=== PATIENT | male | born 1960 | race Caucasian/White ===

== ENCOUNTER 2019-12-30 09:16 | Outpatient (RCR) | payer BC, SELFPAY ==
[2019-12-30 09:23] VITALS: BMI 31.8
== END 2020-03-29 23:59 | disposition home or self-care (01) ==
LOC: ANHDMC 09:16
PROVIDERS: PCP Family Medicine; Visit Provider Physician Assistant Medical
DX: E11.65 Type 2 diabetes mellitus with hyperglycemia (principal); Z71.3 Dietary counseling and surveillance; Z71.89 Other specified counseling
CPT/HCPCS: 97802; G0108

== ENCOUNTER 2020-01-10 11:02 | Outpatient (CLI) | payer BC, SELFPAY ==
--- NOTE | ~2020-01-10 | CT_ITS ---
EXAMINATION: CT lung screening DATE: 01/10/2020 11:29 INDICATION: Screening for lung cancer TECHNIQUE: Computed tomography (CT) of the chest was performed without intravenous contrast. The dose -length product was 208.70 mGy-cm. Automated exposure control and iterative reconstruction technique were employed. COMPARISON: None FINDINGS: Heart size normal. No thoracic lymphadenopathy. No significant pleural or pericardial effus ion. Calcified granuloma right middle lobe. No noncalcified pulmonary nodules are identified. No endo bronchial lesions. No pneumothorax. No osteolytic or osteoblastic lesions are identified. IMPRESSION: 1. Lung-RADS category 1: Negative. Continue annual screening with noncontrast low-dose chest CT in 12 months. Reviewed, dictated and finalized at location B. BOX OPERATOR IMPRESSION: 1. Lung-RADS category 1: Negative. Continue annual screening with noncontrast l ow-dose chest CT in 12 months.
== END 2020-01-10 11:03 | disposition home or self-care (01) ==
LOC: ANHIMG 11:10
PROVIDERS: PCP Family Medicine; Visit Provider Physician Assistant Medical
DX: Z12.2 Encounter for screening for malignant neoplasm of respiratory organs (principal); Z87.891 Personal history of nicotine dependence
CPT/HCPCS: G0297

== ENCOUNTER 2020-09-30 09:39 | Outpatient (CLI) | payer BC, SELFPAY ==
--- NOTE | ~2020-09-30 | US_ITS ---
EXAMINATION: US carotid duplex BI DATE: 09/30/2020 11:26 INDICATION: amaurosis fugax TECHNIQUE: Grayscale, color Doppler, and pulsed Doppler images of the cervical carotid arteries were obtained. The degree of vessel stenosis is placed in one of the following categories: normal, <50%, 5 0-69%, >=70% but less than near-occlusion, near-occlusion, or total occlusion. Note that percent sten osis relative to normal distal artery lumen diameter is indirectly measured from velocity measurement s as described by Jensen, et al. Radiology 2003; 229:340-346. COMPARISON: None. FINDINGS: RIGHT: The right common carotid artery (CCA) peak systolic velocity (PSV) is 77 cm/s. The right internal car otid artery (ICA) PSV is 61 cm/s. The right ICA end-diastolic velocity (EDV) is 29 cm/s. The right IC A/CCA PSV ratio is 0.8. Grayscale and color Doppler images yield an estimate of <50% diameter reducti on from plaque in the ICA. The external carotid artery (ECA) PSV is 100 cm/s. There is antegrade flow in the right vertebral artery. LEFT: The left CCA PSV is 102 cm/s. The left ICA PSV is 107 cm/s. The left ICA EDV is 42 cm/s. The left ICA /CCA PSV ratio is 1.1. Grayscale and color Doppler images yield an estimate of <50% diameter reductio n from plaque in the ICA. The ECA PSV is 114 cm/s. There is antegrade flow in the left vertebral pacheco ry. IMPRESSION: 1. <50% stenosis in the right internal carotid artery. 2. <50% stenosis in the left internal carotid artery. Reviewed, dictated and finalized at location . ITECT
--- NOTE | 2020-09-30 10:35 | ECG_ITS ---
Measurements Intervals [place] Rate: 91 P: 53 KS: 176 QRS: 44 QRSD: 89 T: 35 QT: 318 QTc: 392 Interpretive Statements SINUS RHYTHM CANNOT RULE OUT SEPTAL INFARCT, AGE INDETERMINATE BASELINE ARTIFACT- I, III, AVL ABNORMAL ECG Electronically Signed On 09-30-2020 16:57:41 INDI[place] NANNY by Hernan Mcgregor D.O.
== END 2020-09-30 09:40 | disposition home or self-care (01) ==
PROVIDERS: PCP Family Medicine; Visit Provider Physician Assistant Medical
DX: G45.3 Amaurosis fugax (principal); R94.31 Abnormal electrocardiogram [ECG] [EKG]
CPT/HCPCS: 93005; 93880

== ENCOUNTER 2024-12-29 16:03 | Outpatient (CLI) | payer OTHER, SELFPAY ==
--- NOTE | ~2024-12-29 | XR_ITS ---
EXAMINATION: XR hip LT 2V w AP pelvis DATE: 12/29/2024 16:34 INDICATION: Left hip pain. TECHNIQUE: An anteroposterior view of the pelvis on 2 radiographs and 2 views of left hip were obtain ed. COMPARISON: None. FINDINGS: Alignment is normal. No fracture. There is mild osteoarthritis of the hips. IMPRESSION: 1. Mild osteoarthritis of the hips. Reviewed, dictated and finalized at location A. TRON BEAM WELDER SETTER
--- NOTE | ~2024-12-29 | XR_ITS ---
EXAMINATION: XR lumbar spine 2-3V DATE: 12/29/2024 16:34 INDICATION: Left hip pain. TECHNIQUE: 3 views of the lumbar spine including standing views were obtained. COMPARISON: None. FINDINGS: Alignment is normal. Vertebral body heights are normal. There is mildly decreased disc heig ht at L5-S1. There is multilevel facet joint osteoarthritis, moderate in lower lumbar spine. IMPRESSION: 1. Mild lumbar spondylosis. Reviewed, dictated and finalized at location A. ESSOR OF FINE ART IMPRESSION: 1. Mild lumbar spondylosis.
== END 2024-12-29 16:04 | disposition home or self-care (01) ==
LOC: MICIMG 16:06
PROVIDERS: PCP Chiropractor; Visit Provider Chiropractor
DX: M47.896 Other spondylosis, lumbar region (principal); M16.0 Bilateral primary osteoarthritis of hip
CPT/HCPCS: 72100; 73502

== ENCOUNTER 2025-09-14 16:20 | Outpatient (CLI) | payer BC, SELFPAY ==
--- NOTE | ~2025-09-14 | CT_ITS ---
CT lung screening INDICATION: Tobacco use. COMPARISON: 01/10/2020. TECHNIQUE: CT examination of the entire thorax without contrast was performed using low dose technique. Thin section axial, sagittal and coronal images were included to increase sensitivity for small lung nodules. FINDINGS: PULMONARY NODULES: No suspicious noncalcified pulmonary nodules seen. OTHER PULMONARY FINDINGS: There is calcified granuloma within the right middle lobe. Mild emphysematous changes are present. No pathologically enlarged lymph nodes are present. Normal heart size. In this limited nondedicated CT there are mild coronary artery calcifications. UPPER ABDOMEN AND PERIPHERAL SOFT TISSUE: Hepatic cyst measures 4 cm. OSSEOUS STRUCTURES: Bone window shows no aggressive blastic or lytic lesions. IMPRESSION: 1. Lung-RADS category 1: No nodules or definitely benign nodules. Recommendations: 1 or 2: Annual screening with low-dose CT in 12 months. 2. Mild emphysematous changes are present. All CT scans at this facility are performed using low dose modulation techniques as appropriate to perform exam including the following: automated exposure control; use of iterative reconstruction technique; adjustment of the mA and/or kV according to patient size (this includes techniques or standardized protocols for targeted exams where dose is matched to indication/reason for exam). Reviewed, dictated and finalized at location S. OR HIGH MATH TEACHER IMPRESSION: 1. Lung-RADS category 1: No nodules or definitely benign nodules. Recommendations: 1 or 2: Annual screening with low-dose CT in 12 months. 2. Mild emphysematous changes are present. All CT scans at this facility are performed using low dose modulation techniqu es as appropriate to perform exam including the following: automated exposure c ontrol; use of iterative reconstruction technique; adjustment of the mA and/or kV according to patient size (this includes techniques or standardized protocol s for targeted exams where dose is matched to indication/reason for exam).
--- OUTSIDE RECORDS SUMMARY | 2025-09-15 15:09 | XMS_ITS | Clinical Summary ---
Author Organization [facility] Address [address] [place] [address] Care Team Providers Care Slunk Skin Curer Name Role Phone Erick Jarquin MD Primary Care Provider [phone] Medications atorvastatin (LIPITOR) 80 mg tablet 08/12/2020 Active Invokamet XR 150-1,000 mg tablet, IR & ER, biphasic 24hr 08/12/2020 Activ e lisinopril-hydroCH LOROthiazide (ZESTORETIC) 10-12.5 mg tablet 09/04/2020 A ctive Ozempic 1 mg/dose (2 mg/1.5 mL) Pen Injector 06/30/2020 Active Active Problems Problem Noted Date Diagnosed Date Leukocytosis (leucocytosis) 09/12/2020 Social History Tobacco Use Types Packs/Day Years Used Date Smoking Tobacco: Every Day Cigarettes 1 25 Smokeless Tobacco: Never Tobacco Cessation:Ready to Q uit: Yes Comments:has not smoked for 4 days Alcohol Use Standard Drinks/Week Comments Yes 6 (1 standard drink = 0.6 oz pur e alcohol) Sex and Gender Information Value Date Recorded Sex Assigned at Not on file Legal Sex Male 12:44 PM CDT Gender Identity Not on file Sexual Orientation Not on file Last Filed Vital Signs Vital Sign Reading Time Taken Comments Blood Pressure 124/85 09/12/2020 1:30 PM CODER Pulse 84 09/12/2020 1:30 PM CODER Temperature 37.1 C (98.7 F) 09/12/2020 1:30 PM CODER Respiratory Rate - - Oxygen Saturation 97% 09/12/2020 1:30 PM CODER Inhaled Oxygen Concentration - - Weight 94.9 kg (209 lb 4.8 oz) 09/12/2020 1:30 P M CODER Height 177.8 cm (5' 10) 09/12/2020 1:30 PM CODER Body Mass Index 30.03 09/12/2020 1:30 PM CODER Plan of Treatment Health Maintenance Due Date Last Done Comments DTAP/TDAP/TD VACCINES (1 - Tdap) 1978 COLORECTAL SCREENING 2004 Colorectal Cancer Screening 2004 FIT-DNA Q 3 years 2004 FIT/FOBT Q 1 year 2004 Flex Sig/CT Colonography Q 5 years 2004 PNEUMOCOCCAL VACCINE 50+ YEARS (1 of 1 - PCV) 05/09/20 09 ZOSTER VACCINE (1 of 2) 2009 INFLUENZA VACCINE (#1) 2025 RSV VACCINE (60+ or ) (1 - 1-dose 75+ series) 2034 Care Teams Slunk Skin Curer Relationship Specialty Start Date End Date Erick Jarquin MD [address] [place] [address] PCP - General Family Practice 09/04/20
== END 2025-09-14 16:21 | disposition home or self-care (01) ==
PROVIDERS: PCP Family Medicine; Visit Provider Physician Assistant Medical
DX: Z12.2 Encounter for screening for malignant neoplasm of respiratory organs (principal); Z87.891 Personal history of nicotine dependence; J43.9 Emphysema, unspecified
CPT/HCPCS: 71271

== ENCOUNTER 2025-10-27 02:39 | Day surgery (SDC) | payer BC, SELFPAY ==
--- OUTSIDE RECORDS SUMMARY | 2025-04-18 12:00 | XMS_ITS | Continuity of Care Document ---
Author Organization [facility] [place] Address [address] [place] [address] Phone Care Team Providers Care Glass Processing Worker Name Role Phone Kelly Gil PTA Unavailable Unavailable Procedures Procedure Date Therapeutic Activities Neuromuscular Re-Ed Manual Therapy Therapeutic Exercise Therapeutic Activities Neuromuscular Re-Ed Therapeutic Exercise Manual Therapy Progress Note Therapeutic Activities Neuromuscular Re-Ed Therapeutic Exercise Therapeutic Activities Therapeutic Exercise Neuromuscular Re-Ed Therapeutic Activities Neuromuscular Re-Ed Therapeutic Exercise Therapeutic Activities Neuromuscular Re-Ed Therapeutic Exercise Therapeutic Activities Neuromuscular Re-Ed Therapeutic Exercise Therapeutic Activities Neuromuscular Re-Ed Therapeutic Exercise Therapeutic Activities Neuromuscular Re-Ed Therapeutic Exercise Therapeutic Activities Neuromuscular Re-Ed Therapeutic Exercise Therapeutic Activities Neuromuscular Re-Ed Therapeutic Exercise Doc neg elder mal no plan PT Evaluation Moderate Complexity Therapeutic Activities Neuromuscular Re-Ed Advance Directives Directive Yes / No Effective Date File Name No Information Encounters Encounter Description Practice Location Reason(s) For Visit Diagnoses Date Provider Providers Copied on Encounter [facility], [address] [place] [address], [id number], tel:[phone] [place] No Information Jeffery Mendoza. . Referring Provider: Erick Jarquin, [address] [place], [address]. tel:[phone] [place] [address] [facility] [employer], [id number], [place] tel:[phone] [place] No Information Jaya Gomezyn. . Referring Provider: Erick Jarquin, [address] [place], [address]. tel:[phone] [place] [address] [place] [address], [id number], [place] tel:[phone] [place] No Information Jaya Gomezyn. . Referring Provider: Erick Jarquin, [address] [place], [address]. tel:[phone] [place] [address] [facility] [employer], [id number], tel:[phone] [place] No Information Jaya Gomezyn. . Referring Provider: Erick Jarquin, [address] [place], [address]. tel:[phone] [place] [address] [address] [place] [employer], [id number], tel:[phone] [place] No Information Jaya Gomezyn. . Referring Provider: Erick Jarquin, [address] [place], [address]. tel:[phone] [place] [address], [id number], [place] tel:[phone] [place] No Information Jaya Duncan. . Referring Provider: Erick Jarquin, [address] [place], [address]. tel:[phone] [place] [address], [address], [id number], [place] tel:[phone] [place] No Information Jaya Duncan. . Referring Provider: Erick Jarquin, [address] [place], [address]. tel:[phone] [place] [address], [address], [id number], [place] tel:[phone] [place] No Information Jaya Duncan. . Referring Provider: Erick Jarquin, [address] [place], [address]. tel:[phone] [place] [address], [address], [id number], [place] tel:[phone] [place] No Information Jaya Duncan. . Referring Provider: Erick Jarquin, [address] [place], [address]. tel:[phone] [place] [address], [address], [id number], [place] tel:[phone] [place] No Information Jaya Duncan. . Referring Provider: Erick Jarquin, [address] [place], [address]. tel:[phone] [place] [address], [address], [id number], [place] tel:[phone] [place] No Information Jaya Duncan. . Referring Provider: Erick Jarquin [address] [place], [address]. tel:[phone] [facility] [place], [address] [facility] [address], [place], [place], [id number], tel:[phone] [place] No Information Jaya Leonardo . Referring Provider: Erick Jarquin, [address] [facility], [place], [address]. tel:[phone] Family History Family Member Type Diagnosis Age At Onset No Information Payers Payer name Insurance type Covered republican ID [facility] [place] [id number] Social History Type Description Quantity Date Captured Comments Sex Male Smoking Status No Information Chief Complaint And Reason For Visit No Information Reason For Referral Reason For Referral No Information Plan Of Treatment Date Type Action Status Goal Tobacco Cessation Counseling completed Goal Tobacco cessation counseling completed History Of Present Illness Encounter Date Complaint History Of Prese nt Illness No Information Functional Status Date Functional Assessmen t No Information Instructions Date Instruction Additional Infor mation No Information Assessments Type Assessment Date No Information Patient Care Teams Name Effective Dates (start - stop) Status Members No Information
[2025-09-27 15:29] VITALS: BMI 31.6
--- OUTSIDE RECORDS SUMMARY | 2025-10-27 02:41 | XMS_ITS | Clinical Summary ---
Author Organization [facility] Address [address] [place] [address] Care Team Providers Care Facing Machine Operator Name Role Phone Erick Jarquin MD Primary Care Provider [phone] Medications atorvastatin (LIPITOR) 80 mg tablet 08/12/2020 [...] Comments Blood Pressure 124/85 09/12/2020 1:30 PM CAPTAIN/CHECK AIRMAN Pulse 84 09/12/2020 1:30 PM CAPTAIN/CHECK AIRMAN Temperature 37.1 C (98.7 F) 09/12/2020 1:30 PM CAPTAIN/CHECK AIRMAN Respiratory Rate - - Oxygen Saturation 97% 09/12/2020 1:30 PM CAPTAIN/CHECK AIRMAN Inhaled Oxygen Concentration - - Weight 94.9 kg (209 lb 4.8 oz) 09/12/2020 1:30 P M CAPTAIN/CHECK AIRMAN Height 177.8 cm (5' 10) 09/12/2020 1:30 PM CAPTAIN/CHECK AIRMAN Body Mass Index 30.03 09/12/2020 1:30 PM CAPTAIN/CHECK AIRMAN Plan of Treatment Health Maintenance Due Date [...] - 1-dose 75+ series) 2034 Care Teams Facing Machine Operator Relationship Specialty Start Date End Date Erick Jarquin MD [address] [place] [address] PCP - General Family Practice 09/04/20
[2025-10-27 06:20] VITALS: BP 135/81; PULSE 97; RESP 18; TEMP 36.1; O2SAT 97; BMI 30.7
[2025-10-27] MEDS: LACTATED RINGERS 1,000 ML 150 ML IV CONT (06:31)
--- NOTE | 2025-10-27 06:50 | WPDANESEPPF ---
Anes - Initial Pre Proc Eval Procedure: Operation Date: 10/27/25 07:30 Proposed Procedures p Screening Colonoscopy - Joshua Valente MD Date/Time: 10/27/25 06:50 Surgeon: Joshua Valente MD Pre Op Diagnosis: Screening Patient Data Age: 65 Gender: M Height: 1.78 m Weight: 97 kg Last Vital Signs Temp 97 F L 10/27/25 06:20 Pulse 97 10/27/25 06:20 Resp 18 10/27/25 06:20 BP 135/81 10/27/25 06:20 Pulse Ox 97 10/27/25 06:20 O2 Del Method Room Air 10/27/25 06:20 Allergies Allergy/AdvReac Type Severity Reaction Status Date / Time No Known Allergies Allergy Verified 10/27/25 06:18 Home Medications ?Medication ?Instructions ?Recorded ?Confirmed ?Type flash glucose scanning reader #1 ea 08/07/21 09/27/25 Rx (FreeStyle Renu 14 Day [place]) sildenafil 100 mg tablet (Viagra) 100 mg PO DAILY PRN sexual 05/08/23 09/27/25 Rx activity #8 tabs flash glucose sensor (FreeStyle #2 ea 11/14/23 09/27/25 Rx Renu 14 Day Sensor kit) dapagliflozin propaned 10 1 tablet PO DAILY #30 ea 05/08/25 10/27/25 Rx mg-metformin ER 1,000 mg tablet,ext rel 24hr (Xigduo XR) citalopram 20 mg tablet See Rx Instructions .Route 07/14/25 10/27/25 Rx .COMPLEX #90 tabs atorvastatin 80 mg tablet 80 mg PO DAILY #90 tabs 08/07/25 10/27/25 Rx tirzepatide 12.5 mg/0.5 mL 12.5 mg (0.5 mL) subcut WEEKLY #2 08/22/25 10/27/25 Rx subcutaneous pen injector mL (Mounjaro) meloxicam 15 mg tablet 15 mg PO DAILY #30 tabs 09/21/25 10/27/25 Rx alprazolam 0.5 mg tablet (Xanax) 0.5 mg PO BID PRN anxiety 09/27/25 09/27/25 History lisinopril 10 1 tablet PO DAILY #90 tabs 09/29/25 10/27/25 Rx mg-hydrochlorothiazide 12.5 mg tablet varenicline tartrate 1 mg tablet 1 mg PO BID #56 tabs 10/13/25 Rx (Chantix) Laboratory Tests 10/27/25 06:29 POC Capillary Glucose 140 H mg/dl (65-105) Patient hx anesthesia problems: none Family hx anesthesia problems: none Results Review: All pre-operative results and documents have been reviewed as part of the pre-operative evaluation. [facility] Past Medical History Medical History Nicotine dependence Needs smoking cessation education BMI 29.0-29.9,adult Family History Family History Grandparent Hypertension Family history of malignant neoplasm Family history of coronary artery disease Diabetes mellitus Mother Family history of diabetes mellitus in first degree relative Diabetes mellitus Father Family history of Hodgkin's lymphoma Sibling No problems noted. 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 HTN, hyperlipidemia, ATILIO on CPAP, DM fsbs 140, smoker 1 ppd and did smoke at 530 am. Pt can walk short distances, no cp or sob. Informed Consent: The patient's anesthetic plan and its attendant risks and benefits were discussed with the patient/family/POA. Questions were solicited and answers provided to the satisfaction of the patient/family/POA.
--- NOTE | 2025-10-27 07:34 | PM.HPGS ---
History of Present Illness History of Present Illness Consent: Risks, benefits, and alternatives have been discussed and questions answered. Patient agrees to proceed with procedure. Chief complaint: Screening Narrative: Drew Blackman is a 65 year old male here for first screening colonoscopy Review of Systems Review of Systems: All systems reviewed & are unremarkable except as noted in HPI and below PMFSH Past Medical History Medical History Nicotine dependence Needs smoking cessation education BMI 29.0-29.9,adult Family History Family History Grandparent Hypertension Family history of malignant neoplasm Family history of coronary artery disease Diabetes mellitus Mother Family history of diabetes mellitus in first degree relative Diabetes mellitus Father Family history of Hodgkin's lymphoma Sibling No problems noted. 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 Gender identity (if verbalized by the patient): Male Spiritual care concerns: No Meds Home Medications and Allergies Home Medications ?Medication ?Instructions ?Recorded ?Confirmed ?Type flash glucose scanning reader #1 ea 08/07/21 09/27/25 Rx (FreeStyle Renu 14 Day [place]) sildenafil 100 mg tablet (Viagra) 100 mg PO DAILY PRN sexual 05/08/23 09/27/25 Rx activity #8 tabs flash glucose sensor (FreeStyle #2 ea 11/14/23 09/27/25 Rx Renu 14 Day Sensor kit) dapagliflozin propaned 10 1 tablet PO DAILY #30 ea 05/08/25 10/27/25 Rx mg-metformin ER 1,000 mg tablet,ext rel 24hr (Xigduo XR) citalopram 20 mg tablet See Rx Instructions .Route 07/14/25 10/27/25 Rx .COMPLEX #90 tabs atorvastatin 80 mg tablet 80 mg PO DAILY #90 tabs 08/07/25 10/27/25 Rx tirzepatide 12.5 mg/0.5 mL 12.5 mg (0.5 mL) subcut WEEKLY #2 08/22/25 10/27/25 Rx subcutaneous pen injector mL (Mounjaro) meloxicam 15 mg tablet 15 mg PO DAILY #30 tabs 09/21/25 10/27/25 Rx alprazolam 0.5 mg tablet (Xanax) 0.5 mg PO BID PRN anxiety 09/27/25 09/27/25 History lisinopril 10 1 tablet PO DAILY #90 tabs 09/29/25 10/27/25 Rx mg-hydrochlorothiazide 12.5 mg tablet varenicline tartrate 1 mg tablet 1 mg PO BID #56 tabs 10/13/25 Rx (Chantix) Allergies Allergy/AdvReac Type Severity Reaction Status Date / Time No Known Allergies Allergy Verified 10/27/25 06:18 Vital Signs Vital Signs - 24 hr 10/27/25 06:20 Temperature 97 F L Pulse Rate 97 Respiratory Rate 18 Blood Pressure 135/81 Pulse Oximetry 97 Oxygen Delivery Room Air Exam Const: General: comfortable and no acute distress HENMT: Face/Nose/Sinus: Normal nares present Eyes: General: appearance normal, both eyes and all related structures Neck: Neck: no JVD Resp: Auscultation: clear to auscultation bilaterally Cardio: Rate: regular rate Rhythm: regular rhythm GI: Inspection: non-distended GI Palp: Yes Soft to palpation Skin: General skin exam: normal color Extrem: General: normal to inspection Psych: Mental Status: mental status grossly normal Assessment and Plan Assessment and plan (1) Screening for colon cancer: Code(s): Z12.11 - Encounter for screening for malignant neoplasm of colon Status: Acute Assessment and Plan: colonoscopy
--- NOTE | 2025-10-27 07:50 | S_PTH ---
PATIENT: Drew Blackman LOC: [facility]#:[id number] AGE/SX: 65/M ROOM: RE10/27/[address]: Joshua Valente MD : 1960 BED: DIS: 10/27/2025 SPEC #: [id number] RECD: 10/27/25 10:29 STATUS: LELO REEVES #: [id number] OBDULIO: 10/27/25 07:[address]: Joshua Valente DEPT: [facility] Surgical RECD BY: Almaz Owen ENTERED: 10/27/25 10:29 SP TYPE: Surgical OTHR DR: Erick Jarquin MD Tissues: A - Colon Polypectomy B - Rectal Polyp Procedures: Hematoxylin and Eosin Stain Gross and Microscopic Level 4
[2025-10-27 07:53] VITALS: BP 132/91; PULSE 89; RESP 20; O2SAT 98
[2025-10-27 08:03] VITALS: BP 126/76; PULSE 88; RESP 24; O2SAT 98
[2025-10-27 08:13] VITALS: BP 124/72; PULSE 87; RESP 23; O2SAT 97
== END 2025-10-27 08:27 | disposition home or self-care (01) ==
PROVIDERS: PCP Family Medicine; Referring Provider Physician Assistant Medical; Visit Provider Internal Medicine Gastroenterology
PROC: 0DJD8ZZ Inspection of Lower Intestinal Tract, Via Natural or Artificial Opening Endoscopic (ICD-10-PCS; CPT 45378; principal; 2025-10-27 07:30)
DX: Z12.11 Encounter for screening for malignant neoplasm of colon (principal); D12.2 Benign neoplasm of ascending colon; K62.1 Rectal polyp; K64.8 Other hemorrhoids; I10 Essential (primary) hypertension; E78.5 Hyperlipidemia, unspecified; G47.33 Obstructive sleep apnea (adult) (pediatric); F17.210 Nicotine dependence, cigarettes, uncomplicated; F12.90 Cannabis use, unspecified, uncomplicated; Z79.84 Long term (current) use of oral hypoglycemic drugs; Z79.85 Long-term (current) use of injectable non-insulin antidiabetic drugs; Z99.89 Dependence on other enabling machines and devices; Z80.7 Family history of other malignant neoplasms of lymphoid, hematopoietic and related tissues; Z82.49 Family history of ischemic heart disease and other diseases of the circulatory system
CPT/HCPCS: 45385; 82948; 88305; J2003; J2704; J7120